=== PATIENT | female | born 1975 | race Caucasian/White ===

== ENCOUNTER 2021-02-20 10:26 | Inpatient (IN) | payer MEDICAID ==
[~2021-02-20] VITALS: Ht 170.2 cm; Wt 73.5 kg
[~2021-02-20 10:26] MED LIST: RISP1TAB48 PO
[2021-02-20 11:10] LABS: COVID AG,FIA SOURCE NASOPHARYNGEAL
[2021-02-20] MEDS ORDERED: HALOPERIDOL LACTATE 5 MG/ML VIAL IM ONE (11:30)
[2021-02-20] MEDS ORDERED: DiphenhydrAMINE HCL 50 MG/ML VIAL IM ONE (11:30)
[2021-02-20] MEDS ORDERED: LORazepam 2 MG/ML VIAL IM ONE (11:30)
[2021-02-20 12:43] LABS: AMPHET/METH SCREEN,URINE POSITIVE (NEGATIVE); BARBITURATE SCREEN, URINE NEGATIVE (NEGATIVE); BENZODIAZEPINES SCREEN,URINE NEGATIVE (NEGATIVE); CANNABINOID SCREEN,URINE NEGATIVE (NEGATIVE); COCAINE SCREEN,URINE NEGATIVE (NEGATIVE); METHADONE SCREEN, URINE NEGATIVE (NEGATIVE); OPIATE SCREEN,URINE NEGATIVE (NEGATIVE); PHENCYCLIDINE SCREEN,URINE NEGATIVE (NEGATIVE)
[2021-02-20 13:01] LABS: BASOPHILS % (AUTO) 1.3 % (0.0-2.0); EOSINOPHILS % (AUTO) 2.5 % (1.0-6.0); HEMATOCRIT 40.3 % (36-46); HEMOGLOBIN 13.2 g/dL (12.0-16.0); LYMPHOCYTES # (AUTO) 1.9 K/uL (1.0-4.8); LYMPHOCYTES % (AUTO) 29.9 % (22.0-44.0); MEAN CORPUSCULAR HEMOGLOBIN 27.1 pg (26.0-34.0); MEAN CORPUSCULAR HGB CONC 32.8 G/dL (31.0-37.0); MEAN CORPUSCULAR VOLUME 83 fL (80-100); MONOCYTES # (AUTO) 0.7 K/uL (0.1-1.0); MONOCYTES % (AUTO) 10.1 % (2.0-9.0); NEUTROPHILS # (AUTO) 3.7 K/uL (1.8-7.7); NEUTROPHILS % (AUTO) 56.2 % (40.0-70.0); PLATELET COUNT (AUTO) 312 K/uL (150-450); RED BLOOD CELL COUNT(AUTO) 4.88 MIL/uL (4.00-5.20); RED CELL DISTRIBUTION WIDTH 14.4 % (11.5-14.5)
[2021-02-20 13:10] LABS: ANION GAP 11 mmol/L (8-16); CALCIUM, TOTAL 9.2 mg/dL (8.8-10.5); CARBON DIOXIDE 27 mmol/L (22-29); CHLORIDE 104 mmol/L (98-107); CREATININE 0.69 mg/dL (0.60-1.30); GLOMERULAR FILTR. RATE CALC > 60 mL/min (>60); GLUCOSE,RANDOM 79 mg/dL (70-110); POTASSIUM 3.7 mmol/L (3.5-5.1); SODIUM SERUM 142 mmol/L (136-145); UREA NITROGEN, BLOOD 25 mg/dL (7-18)
[2021-02-20 13:21] LABS: ALANINE AMINOTRANSFERASE 34 U/L (12-78); ALBUMIN 3.9 g/dL (3.4-5.0); ALKALINE PHOSPHATASE 88 U/L (46-116); ASPARTATE AMINOTRANSFERASE 32 U/L (15-37); BILIRUBIN,TOTAL 0.4 mg/dL (0.1-1.0); HCG,QUANTITATIVE 5 mIU/mL (0-6); TOTAL PROTEIN, SERUM 8.9 g/dL (6.4-8.2)
[2021-02-20] MEDS ORDERED: HALOPERIDOL 5 MG TABLET PO PRN (13:45)
[2021-02-20] MEDS ORDERED: LORazepam 2 MG TABLET PO PRN (13:45)
[2021-02-20] MEDS ORDERED: CEPHALEXIN MONOHYDRATE 500 MG CAPSULE PO ONE ×2 (13:45→17:35)
[2021-02-20] MEDS ORDERED: ZOLPIDEM TARTRATE 10 MG TABLET PO PRN (13:45)
[2021-02-20 13:52] LABS: C-REACTIVE PROTEIN QUANT < 0.05 mg/dL (0.00-0.30)
[2021-02-20 14:05] LABS: D-DIMER 0.48 mg/L FEU (0.00-0.50); PROTHROMBIN TIME 10.8 SEC (9.4-11.6)
[2021-02-20] MEDS ORDERED: BACITRACIN 0.9 GM PACKET OINTMENT TP ONE (14:30)
[2021-02-20] MEDS ORDERED: DOXYCYCLINE HYCLATE 100 MG TABLET PO ONE ×2 (14:30→17:35)
[2021-02-20 14:45] LABS: ERYTHROCYTE SEDIMENTATION RATE 25 MM/HR (0-20)
[2021-02-21 01:43] VITALS: BP 118/73
[2021-02-21] MEDS ORDERED: LOPERAMIDE HCL 2 MG CAPSULE PO PRN (08:00)
[2021-02-21] MEDS ORDERED: MAGNESIUM HYDROXIDE SUSPENSION 30 ML UDCUP PO PRN (08:00)
[2021-02-21] MEDS ORDERED: ONDANSETRON HCL 4 MG TABLET PO PRN (08:00)
[2021-02-21] MEDS ORDERED: DOCUSATE SODIUM 100 MG CAPSULE PO PRN (08:00)
[2021-02-21] MEDS ORDERED: NICOTINE 14 MG/24 HOUR PATCH TD PRN (08:00)
[2021-02-21] MEDS ORDERED: ALBUTEROL SULFATE HFA 90 MCG/PUFF 8 GM INHALER IH PRN (08:00)
[2021-02-21] MEDS ORDERED: CloNIDine HCL 0.1 MG TABLET PO PRN (08:00)
[2021-02-21] MEDS ORDERED: MAG HYDROX/AL HYDROX/SIMETH ES 30 ML SUSPENSION UDCUP PO PRN (08:00)
[2021-02-21] MEDS ORDERED: GuaiFENesin/D-METHORPHAN [SUGAR-FREE] 200-20MG/10 ML SYRUP UDCUP PO PRN (08:00)
[2021-02-21] MEDS ORDERED: PETROLATUM,WHITE 28 GM JELLY TP PRN (08:00)
[2021-02-21] MEDS ORDERED: ACETAMINOPHEN 325 MG TABLET PO PRN (08:00)
[2021-02-21 08:14] VITALS: BP 115/62
[2021-02-21] MEDS: BACITRACIN 28 GM OINTMENT TP SCH ×2 (09:07→17:25)
[2021-02-21 16:30] VITALS: BP 113/72
[2021-02-21] MEDS: RisperiDONE 2 MG TABLET PO SCH ×2 (18:05→20:34)
[2021-02-22] MEDS: BACITRACIN 28 GM OINTMENT TP SCH ×2 (08:21→16:31)
[2021-02-22] MEDS: RisperiDONE 2 MG TABLET PO SCH ×2 (08:47→21:00)
[2021-02-22 16:20] VITALS: BP 103/60
[2021-02-23 00:47] VITALS: BP 100/65
[2021-02-23] MEDS: RisperiDONE 2 MG TABLET PO SCH ×2 (08:15→21:00)
[2021-02-23] MEDS: BACITRACIN 28 GM OINTMENT TP SCH ×2 (08:15→16:14)
[2021-02-23 17:15] VITALS: BP 132/61
[2021-02-24 00:56] VITALS: BP 126/66
[2021-02-24] MEDS: BACITRACIN 28 GM OINTMENT TP SCH ×3 (09:00→16:38)
[2021-02-24] MEDS: RisperiDONE 2 MG TABLET PO SCH ×2 (09:00→20:22)
[2021-02-24 16:11] VITALS: BP 127/69
[2021-02-25 04:45] VITALS: BP 126/62
[2021-02-25] MEDS: BACITRACIN 28 GM OINTMENT TP SCH ×2 (08:33→17:05)
[2021-02-25] MEDS: RisperiDONE 2 MG TABLET PO SCH ×2 (08:33→21:00)
[2021-02-25 08:35] VITALS: BP 101/66
[2021-02-25] MEDS: IBUPROFEN 400 MG TABLET PO PRN (14:14)
[2021-02-25 16:18] VITALS: BP 108/66
[2021-02-26 00:23] VITALS: BP 108/64
[2021-02-26] MEDS: BACITRACIN 28 GM OINTMENT TP SCH ×2 (08:25→16:56)
[2021-02-26] MEDS: RisperiDONE 2 MG TABLET PO SCH ×2 (08:25→20:59)
[2021-02-26] MEDS ORDERED: HALOPERIDOL LACTATE 5 MG/ML VIAL ONE (16:39)
[2021-02-26] MEDS ORDERED: DiphenhydrAMINE HCL 50 MG/ML VIAL IM ONE (16:40)
[2021-02-26] MEDS ORDERED: HALOPERIDOL LACTATE 5 MG/ML VIAL IM ONE (16:40)
[2021-02-26] MEDS ORDERED: LORazepam 2 MG/ML VIAL IM ONE (16:40)
[2021-02-27 00:45] VITALS: BP 102/69
[2021-02-27 08:29] VITALS: BP 124/79
[2021-02-27] MEDS: RisperiDONE 2 MG TABLET PO SCH ×2 (08:30→21:00)
[2021-02-27] MEDS: BACITRACIN 28 GM OINTMENT TP SCH ×2 (08:30→16:06)
[2021-02-27] MEDS: IBUPROFEN 400 MG TABLET PO PRN (16:06)
[2021-02-27 16:21] VITALS: BP 105/64
[2021-02-28 02:05] VITALS: BP 102/71
[2021-02-28] MEDS: IBUPROFEN 400 MG TABLET PO PRN ×2 (05:12→21:07)
[2021-02-28 08:12] VITALS: BP 112/66
[2021-02-28] MEDS: RisperiDONE 2 MG TABLET PO SCH ×2 (08:24→21:00)
[2021-02-28] MEDS: BACITRACIN 28 GM OINTMENT TP SCH ×2 (08:24→17:00)
[2021-02-28 17:28] VITALS: BP 120/68
[2021-02-28 21:07] VITALS: BP 101/59
[2021-03-01 02:40] VITALS: BP 117/66
[2021-03-01] MEDS: RisperiDONE 2 MG TABLET PO SCH (08:13)
[2021-03-01] MEDS: BACITRACIN 28 GM OINTMENT TP SCH (08:13)
[2021-03-01 08:15] VITALS: BP 102/62
[2021-03-01] MEDS ORDERED: RISP2TAB45 PO (08:45)
[2021-03-01] MEDS: IBUPROFEN 400 MG TABLET PO PRN (10:17)
== END 2021-03-01 13:00 | disposition home or self-care (01) | DRG 750 ==
LOC: EMS 10:32 → B3A 13:33
DX: F20.0 Paranoid schizophrenia (principal); L03.116 Cellulitis of left lower limb; E11.9 Type 2 diabetes mellitus without complications; I10 Essential (primary) hypertension; F15.10 Other stimulant abuse, uncomplicated; R10.13 Epigastric pain; F31.9 Bipolar disorder, unspecified; Z91.19 Patient's noncompliance with other medical treatment and regimen; Z79.899 Other long term (current) drug therapy
CPT/HCPCS: 80053; 83036; 84702; 84703; 85025; 85379; 85610; 85651; 86140; 87040; 87426; 99291; G0480; J1200; J1630; J2060

== ENCOUNTER 2021-02-28 12:08 | Emergency (ER) | payer MEDICAID ==
[~2021-02-28] VITALS: Ht 170.2 cm; Wt 78.0 kg
[2021-02-28 13:59] VITALS: BP 122/84
[2021-02-28] MEDS ORDERED: ACETAMINOPHEN 500 MG TABLET PO ONE (14:30)
[2021-03-01] MEDS ORDERED: RISP2TAB45 PO (08:45)
== END 2021-02-28 16:46 | disposition home or self-care (01) ==
LOC: EMS 12:08
DX: S93.402A Sprain of unspecified ligament of left ankle, initial encounter (principal); I11.9 Hypertensive heart disease without heart failure; E11.9 Type 2 diabetes mellitus without complications; F15.90 Other stimulant use, unspecified, uncomplicated; W01.0XXA Fall on same level from slipping, tripping and stumbling without subsequent striking against object, initial encounter; Y93.89 Activity, other specified; Y92.89 Other specified places as the place of occurrence of the external cause; Y99.8 Other external cause status
CPT/HCPCS: 99284

== ENCOUNTER 2021-04-18 23:14 | Emergency (ER) | payer MEDICAID ==
[~2021-04-18] VITALS: Ht 180.3 cm; Wt 100.0 kg
[~2021-04-18 23:14] MED LIST changes: -RISP1TAB48 PO; +RISP2TAB45 PO
[2021-04-18] MEDS ORDERED: KETOROLAC TROMETHAMINE 30 MG/ML VIAL IM ONE (23:45)
[2021-04-19 01:32] VITALS: BP 99/71
== END 2021-04-19 02:58 | disposition home or self-care (01) ==
LOC: EMS 23:15
DX: S93.402A Sprain of unspecified ligament of left ankle, initial encounter (principal); I10 Essential (primary) hypertension; E11.9 Type 2 diabetes mellitus without complications; F15.90 Other stimulant use, unspecified, uncomplicated; X50.1XXA Overexertion from prolonged static or awkward postures, initial encounter; Y93.89 Activity, other specified; Y92.89 Other specified places as the place of occurrence of the external cause; Y99.8 Other external cause status
CPT/HCPCS: 73610; 73630; 82962; 96372; 99284; J1885; 29540; 99283

== ENCOUNTER 2022-10-15 11:43 | Inpatient (IN) | payer MEDICAID ==
[~2022-10-15] VITALS: Ht 165.1 cm; Wt 70.8 kg
[2022-10-15] MEDS ORDERED: HALOPERIDOL LACTATE 5 MG/ML VIAL IM ONE (12:45)
[2022-10-15] MEDS ORDERED: LORazepam 2 MG/ML VIAL IM ONE (12:45)
[2022-10-15] MEDS ORDERED: DiphenhydrAMINE HCL 50 MG/ML VIAL IM ONE (12:45)
[2022-10-15 13:51] LABS: BASOPHILS % (AUTO) 0.5 % (0.0-2.0); EOSINOPHILS % (AUTO) 1.7 % (1.0-6.0); HEMATOCRIT 30.5 % (36-46); HEMOGLOBIN 9.3 g/dL (12.0-16.0); LYMPHOCYTES # (AUTO) 1.3 K/uL (1.0-4.8); LYMPHOCYTES % (AUTO) 21.6 % (22.0-44.0); MEAN CORPUSCULAR HEMOGLOBIN 21.9 pg (26.0-34.0); MEAN CORPUSCULAR HGB CONC 30.6 G/dL (31.0-37.0); MEAN CORPUSCULAR VOLUME 72 fL (80-100); MONOCYTES # (AUTO) 0.7 K/uL (0.1-1.0); MONOCYTES % (AUTO) 12.1 % (2.0-9.0); NEUTROPHILS # (AUTO) 3.9 K/uL (1.8-7.7); NEUTROPHILS % (AUTO) 64.1 % (40.0-70.0); PLATELET COUNT (AUTO) 290 K/uL (150-450); RED BLOOD CELL COUNT(AUTO) 4.25 MIL/uL (4.00-5.20); RED CELL DISTRIBUTION WIDTH 19.5 % (11.5-14.5)
[2022-10-15 14:05] LABS: COVID AG,FIA SOURCE NASOPHARYNGEAL
[2022-10-15 14:05] LABS: ANION GAP 5 mmol/L (8-16); CALCIUM, TOTAL 9.2 mg/dL (8.8-10.5); CARBON DIOXIDE 29 mmol/L (22-29); CHLORIDE 102 mmol/L (98-107); CREATININE 0.62 mg/dL (0.60-1.30); GLUCOSE,RANDOM 77 mg/dL (70-110); POTASSIUM 3.6 mmol/L (3.5-5.1); SODIUM SERUM 136 mmol/L (136-145); UREA NITROGEN, BLOOD 22 mg/dL (7-18)
[2022-10-15 14:07] LABS: GLOMERULAR FILTR. RATE CALC > 60 mL/min (>60)
[2022-10-15] MEDS ORDERED: LORazepam 2 MG TABLET PO PRN (14:15)
[2022-10-15] MEDS ORDERED: HALOPERIDOL 5 MG TABLET PO PRN (14:15)
[2022-10-15] MEDS ORDERED: ZOLPIDEM TARTRATE 10 MG TABLET PO PRN (14:15)
[2022-10-15 14:20] LABS: ALANINE AMINOTRANSFERASE 32 U/L (12-78); ALBUMIN 3.6 g/dL (3.4-5.0); ALKALINE PHOSPHATASE 97 U/L (46-116); ASPARTATE AMINOTRANSFERASE 25 U/L (15-37); BILIRUBIN,TOTAL 0.4 mg/dL (0.1-1.0); HCG,QUANTITATIVE 6 mIU/mL (0-6); THYROID STIMULATING HORMONE 4.51 uIU/mL (0.36-3.74); TOTAL PROTEIN, SERUM 7.8 g/dL (6.4-8.2)
[2022-10-15 17:21] VITALS: BP 96/63
[2022-10-16] MEDS ORDERED: ALBUTEROL SULFATE HFA 90 MCG/PUFF 8 GM INHALER IH PRN (06:45)
[2022-10-16] MEDS ORDERED: GuaiFENesin/D-METHORPHAN [SUGAR-FREE] 200-20MG/10 ML SYRUP UDCUP PO PRN (06:45)
[2022-10-16] MEDS ORDERED: CloNIDine HCL 0.1 MG TABLET PO PRN (06:45)
[2022-10-16] MEDS ORDERED: NICOTINE 14 MG/24 HOUR PATCH TD PRN (06:45)
[2022-10-16] MEDS ORDERED: IBUPROFEN 400 MG TABLET PO PRN (06:45)
[2022-10-16] MEDS ORDERED: ACETAMINOPHEN 325 MG TABLET PO PRN (06:45)
[2022-10-16] MEDS ORDERED: ONDANSETRON HCL 4 MG TABLET PO PRN (06:45)
[2022-10-16] MEDS ORDERED: PETROLATUM,WHITE 28 GM JELLY TP PRN (06:45)
[2022-10-16] MEDS ORDERED: LOPERAMIDE HCL 2 MG CAPSULE PO PRN (06:45)
[2022-10-16] MEDS ORDERED: DOCUSATE SODIUM 100 MG CAPSULE PO PRN (06:45)
[2022-10-16] MEDS: RisperiDONE 2 MG TABLET PO SCH ×3 (09:30→20:31)
[2022-10-16 16:00] VITALS: BP 104/62
[2022-10-17 08:27] VITALS: BP 103/55
[2022-10-17] MEDS: RisperiDONE 2 MG TABLET PO SCH ×3 (08:58→20:40)
[2022-10-17 16:14] VITALS: BP 103/54
[2022-10-18] MEDS: RisperiDONE 2 MG TABLET PO SCH ×2 (08:08→20:16)
[2022-10-18 16:00] VITALS: BP 118/59
[2022-10-19] MEDS: RisperiDONE 2 MG TABLET PO SCH ×2 (09:00→20:08)
[2022-10-19 13:59] VITALS: BP 115/63
[2022-10-19 16:05] VITALS: BP 102/60
[2022-10-20 08:17] VITALS: BP 93/55
[2022-10-20] MEDS: RisperiDONE 2 MG TABLET PO SCH ×2 (09:00→20:32)
[2022-10-20 16:01] VITALS: BP 99/63
[2022-10-21 06:37] LABS: COVID AG,FIA SOURCE NASAL SWAB
[2022-10-21] MEDS: RisperiDONE 2 MG TABLET PO SCH (09:00)
== END 2022-10-21 14:30 | disposition home or self-care (01) | DRG 750 ==
LOC: EMS 11:44 → 3EC 16:13
PROVIDERS: ADMIT Psychiatry & Neurology Child & Adolescent Psychiatry; ATTEND Psychiatry & Neurology Child & Adolescent Psychiatry
DX: F20.9 Schizophrenia, unspecified (principal); I42.9 Cardiomyopathy, unspecified; E11.9 Type 2 diabetes mellitus without complications; Z20.822 Contact with and (suspected) exposure to COVID-19; F43.10 Post-traumatic stress disorder, unspecified; I10 Essential (primary) hypertension; Z78.1 Physical restraint status; Z91.14 Patient's other noncompliance with medication regimen
CPT/HCPCS: 71100; 73521; 80053; 80061; 83036; 84443; 84702; 85025; 99291; G0480; J1200; J1630; J2060

== ENCOUNTER 2022-11-04 14:15 | Inpatient (IN) | payer MEDICAID ==
[~2022-11-04] VITALS: Ht 162.6 cm; Wt 78.5 kg
[2022-11-04] MEDS ORDERED: DiphenhydrAMINE HCL 50 MG/ML VIAL IM ONE (15:00)
[2022-11-04] MEDS ORDERED: LORazepam 2 MG/ML VIAL IM ONE (15:00)
[2022-11-04] MEDS ORDERED: HALOPERIDOL LACTATE 5 MG/ML VIAL IM ONE (15:00)
[2022-11-04 15:37] LABS: HEMOGLOBIN 8.8 g/dL (12.0-16.0); LYMPHOCYTES # (AUTO) 1.2 K/uL (1.0-4.8); NEUTROPHILS % (AUTO) 62.2 % (40.0-70.0)
[2022-11-04 15:41] LABS: BASOPHILS % (AUTO) 1.5 % (0.0-2.0); EOSINOPHILS % (AUTO) 3.3 % (1.0-6.0); HEMATOCRIT 28.5 % (36-46); LYMPHOCYTES % (AUTO) 23.7 % (22.0-44.0); MEAN CORPUSCULAR HEMOGLOBIN 22.2 pg (26.0-34.0); MEAN CORPUSCULAR HGB CONC 30.7 G/dL (31.0-37.0); MEAN CORPUSCULAR VOLUME 72 fL (80-100); MONOCYTES # (AUTO) 0.5 K/uL (0.1-1.0); MONOCYTES % (AUTO) 9.3 % (2.0-9.0); NEUTROPHILS # (AUTO) 3.1 K/uL (1.8-7.7); PLATELET COUNT (AUTO) 363 K/uL (150-450); RED BLOOD CELL COUNT(AUTO) 3.94 MIL/uL (4.00-5.20); RED CELL DISTRIBUTION WIDTH 18.1 % (11.5-14.5)
[2022-11-04 15:51] LABS: ANION GAP 9 mmol/L (8-16); CALCIUM, TOTAL 9.4 mg/dL (8.8-10.5); CARBON DIOXIDE 26 mmol/L (22-29); CHLORIDE 108 mmol/L (98-107); CREATININE 0.74 mg/dL (0.60-1.30); GLOMERULAR FILTR. RATE CALC > 60 mL/min (>60); GLUCOSE,RANDOM 88 mg/dL (70-110); POTASSIUM 3.1 mmol/L (3.5-5.1); SODIUM SERUM 143 mmol/L (136-145); UREA NITROGEN, BLOOD 29 mg/dL (7-18)
[2022-11-04 15:57] LABS: ALANINE AMINOTRANSFERASE 21 U/L (12-78); ALBUMIN 3.7 g/dL (3.4-5.0); ALKALINE PHOSPHATASE 87 U/L (46-116); ASPARTATE AMINOTRANSFERASE 26 U/L (15-37); BILIRUBIN,TOTAL 0.5 mg/dL (0.1-1.0); TOTAL PROTEIN, SERUM 8.1 g/dL (6.4-8.2)
[2022-11-04] MEDS ORDERED: LORazepam 2 MG TABLET PO PRN (16:15)
[2022-11-04] MEDS ORDERED: ZOLPIDEM TARTRATE 10 MG TABLET PO PRN (16:15)
[2022-11-04] MEDS ORDERED: HALOPERIDOL 5 MG TABLET PO PRN (16:15)
[2022-11-04 17:02] LABS: COVID AG,FIA SOURCE NASAL SWAB
[2022-11-04 21:46] VITALS: BP 131/78
[2022-11-05] MEDS ORDERED: BENZOCAINE/MENTHOL LOZENGE PO PRN (05:45)
[2022-11-05] MEDS ORDERED: ONDANSETRON HCL 4 MG TABLET PO PRN (05:45)
[2022-11-05] MEDS ORDERED: ACETAMINOPHEN 325 MG TABLET PO PRN (05:45)
[2022-11-05] MEDS ORDERED: BACITRACIN 28 GM OINTMENT TP PRN (05:45)
[2022-11-05] MEDS ORDERED: CloNIDine HCL 0.1 MG TABLET PO PRN (05:45)
[2022-11-05] MEDS ORDERED: OMEPRAZOLE 20 MG CAPSULE PO PRN (05:45)
[2022-11-05] MEDS ORDERED: POTASSIUM CHLORIDE 20 MEQ ER TABLET PO ONE (05:45)
[2022-11-05] MEDS ORDERED: ALBUTEROL SULFATE HFA 90 MCG/PUFF 8 GM INHALER IH PRN (05:45)
[2022-11-05] MEDS ORDERED: MAG HYDROX/AL HYDROX/SIMETH ES 30 ML SUSPENSION UDCUP PO PRN (05:45)
[2022-11-05] MEDS ORDERED: PETROLATUM,WHITE 28 GM JELLY TP PRN (05:45)
[2022-11-05] MEDS ORDERED: LOPERAMIDE HCL 2 MG CAPSULE PO PRN (05:45)
[2022-11-05] MEDS: FERROUS SULFATE 325 MG EC TABLET PO SCH ×2 (06:57→17:45)
[2022-11-05] MEDS: RisperiDONE 2 MG TABLET PO SCH ×2 (12:37→20:33)
[2022-11-06] MEDS: LEVOTHYROXINE SODIUM 25 MCG TABLET PO SCH (06:18)
[2022-11-06] MEDS: FERROUS SULFATE 325 MG EC TABLET PO SCH ×2 (06:37→17:30)
[2022-11-06] MEDS: RisperiDONE 2 MG TABLET PO SCH ×2 (09:00→20:57)
[2022-11-07] MEDS: LEVOTHYROXINE SODIUM 25 MCG TABLET PO SCH (07:00)
[2022-11-07] MEDS: FERROUS SULFATE 325 MG EC TABLET PO SCH ×2 (07:01→16:48)
[2022-11-07] MEDS: RisperiDONE 2 MG TABLET PO SCH ×2 (09:00→20:37)
[2022-11-08] MEDS: LEVOTHYROXINE SODIUM 25 MCG TABLET PO SCH (06:00)
[2022-11-08] MEDS: FERROUS SULFATE 325 MG EC TABLET PO SCH ×2 (06:39→16:37)
[2022-11-08] MEDS: RisperiDONE 2 MG TABLET PO SCH ×2 (08:28→20:12)
[2022-11-08 16:11] VITALS: BP 113/68
[2022-11-09] MEDS: LEVOTHYROXINE SODIUM 25 MCG TABLET PO SCH (06:28)
[2022-11-09] MEDS: FERROUS SULFATE 325 MG EC TABLET PO SCH ×2 (06:41→16:05)
[2022-11-09 08:08] VITALS: BP 114/76
[2022-11-09] MEDS: RisperiDONE 2 MG TABLET PO SCH ×2 (08:36→20:31)
[2022-11-09 16:01] VITALS: BP 117/62
[2022-11-09] MEDS: IBUPROFEN 600 MG TABLET PO PRN (16:06)
[2022-11-10] MEDS: LEVOTHYROXINE SODIUM 25 MCG TABLET PO SCH (06:37)
[2022-11-10] MEDS: FERROUS SULFATE 325 MG EC TABLET PO SCH ×2 (06:37→16:14)
[2022-11-10] MEDS: RisperiDONE 2 MG TABLET PO SCH ×2 (07:55→20:51)
[2022-11-10 08:03] VITALS: BP 125/91
[2022-11-10 13:38] VITALS: BP 119/87
[2022-11-10] MEDS: IBUPROFEN 600 MG TABLET PO PRN ×2 (13:38→22:20)
[2022-11-10] MEDS: MAGNESIUM HYDROXIDE SUSPENSION 30 ML UDCUP PO PRN (13:39)
[2022-11-10] MEDS: DOCUSATE SODIUM 100 MG CAPSULE PO PRN (13:39)
[2022-11-10 14:38] VITALS: BP 121/87
[2022-11-10 15:00] LABS: COVID AG,FIA SOURCE NASAL SWAB
[2022-11-10 16:03] VITALS: BP 115/63
[2022-11-10 22:18] VITALS: BP 117/67
[2022-11-11 06:01] LABS: APPEARANCE,URINE CLEAR (CLEAR); BILIRUBIN,URINE NEGATIVE (NEGATIVE); GLUCOSE, URINE (UA) NEGATIVE (NEGATIVE); KETONES,URINE NEGATIVE (NEGATIVE); LEUKOCYTE ESTERASE ,URINE NEGATIVE (NEGATIVE); NITRATE,URINE NEGATIVE (NEGATIVE); OCCULT BLOOD,URINE NEGATIVE (NEGATIVE); PH,URINE 6.5 (5.0-8.0); PROTEIN,URINE NEGATIVE (NEGATIVE); SPECIFIC GRAVITIY, URINE 1.015 (1.003-1.030); UROBILINOGEN,URINE <=1.0 mg/dL (<=1.0)
[2022-11-11 06:09] LABS: AMPHET/METH SCREEN,URINE NEGATIVE (NEGATIVE); BARBITURATE SCREEN, URINE NEGATIVE (NEGATIVE); BENZODIAZEPINES SCREEN,URINE NEGATIVE (NEGATIVE); CANNABINOID SCREEN,URINE NEGATIVE (NEGATIVE); COCAINE SCREEN,URINE NEGATIVE (NEGATIVE); METHADONE SCREEN, URINE NEGATIVE (NEGATIVE); OPIATE SCREEN,URINE NEGATIVE (NEGATIVE)
[2022-11-11 06:11] LABS: PHENCYCLIDINE SCREEN,URINE NEGATIVE (NEGATIVE)
[2022-11-11] MEDS: LEVOTHYROXINE SODIUM 25 MCG TABLET PO SCH (06:16)
[2022-11-11] MEDS: FERROUS SULFATE 325 MG EC TABLET PO SCH ×2 (06:31→17:30)
[2022-11-11 08:06] VITALS: BP 102/67
[2022-11-11] MEDS: RisperiDONE 2 MG TABLET PO SCH (08:15)
[2022-11-11 15:30] VITALS: BP 111/65
[2022-11-11] MEDS: IBUPROFEN 600 MG TABLET PO PRN (15:30)
[2022-11-11 16:05] VITALS: BP 111/65
[2022-11-11] MEDS: OLANZapine 10 MG TABLET PO SCH (20:02)
[2022-11-12] MEDS: LEVOTHYROXINE SODIUM 25 MCG TABLET PO SCH ×2 (06:26→17:46)
[2022-11-12] MEDS: FERROUS SULFATE 325 MG EC TABLET PO SCH ×2 (06:31→17:46)
[2022-11-12 08:19] VITALS: BP 125/74
[2022-11-12] MEDS: IBUPROFEN 600 MG TABLET PO PRN (12:39)
[2022-11-12 12:40] VITALS: BP 122/76
[2022-11-12 13:40] VITALS: BP 111/68
[2022-11-12 16:00] VITALS: BP 113/66
[2022-11-12] MEDS: MAGNESIUM HYDROXIDE SUSPENSION 30 ML UDCUP PO PRN (17:47)
[2022-11-12] MEDS: DOCUSATE SODIUM 100 MG CAPSULE PO PRN (17:47)
[2022-11-12] MEDS: OLANZapine 10 MG TABLET PO SCH (20:24)
[2022-11-13] MEDS: FERROUS SULFATE 325 MG EC TABLET PO SCH ×2 (06:48→16:41)
[2022-11-13 08:34] VITALS: BP 113/60
[2022-11-13 16:36] VITALS: BP 107/67
[2022-11-13 16:55] VITALS: BP 112/69
[2022-11-13] MEDS: IBUPROFEN 600 MG TABLET PO PRN (16:55)
[2022-11-13] MEDS: OLANZapine 10 MG TABLET PO SCH (20:19)
[2022-11-14] MEDS: LEVOTHYROXINE SODIUM 25 MCG TABLET PO SCH (06:45)
[2022-11-14] MEDS: FERROUS SULFATE 325 MG EC TABLET PO SCH ×2 (06:47→17:50)
[2022-11-14 09:02] VITALS: BP 108/74
[2022-11-14] MEDS: IBUPROFEN 600 MG TABLET PO PRN (14:21)
[2022-11-14 16:24] VITALS: BP 102/61
[2022-11-14] MEDS: OLANZapine 10 MG TABLET PO SCH (21:06)
[2022-11-15] MEDS: LEVOTHYROXINE SODIUM 25 MCG TABLET PO SCH (06:40)
[2022-11-15] MEDS: FERROUS SULFATE 325 MG EC TABLET PO SCH ×2 (06:41→16:53)
[2022-11-15 08:08] VITALS: BP 103/70
[2022-11-15 16:00] VITALS: BP 109/61
[2022-11-15] MEDS: IBUPROFEN 600 MG TABLET PO PRN (16:16)
[2022-11-15 17:16] VITALS: BP 112/68
[2022-11-15] MEDS: OLANZapine 10 MG TABLET PO SCH (20:15)
[2022-11-16] MEDS: FERROUS SULFATE 325 MG EC TABLET PO SCH ×2 (06:34→16:55)
[2022-11-16] MEDS: LEVOTHYROXINE SODIUM 25 MCG TABLET PO SCH (06:34)
[2022-11-16 15:11] VITALS: BP 118/74
[2022-11-16] MEDS: IBUPROFEN 600 MG TABLET PO PRN (15:11)
[2022-11-16 16:11] VITALS: BP 106/72
[2022-11-16 16:30] VITALS: BP 121/69
[2022-11-16] MEDS: OLANZapine 10 MG TABLET PO SCH (20:50)
[2022-11-17] MEDS: LEVOTHYROXINE SODIUM 25 MCG TABLET PO SCH (06:47)
[2022-11-17] MEDS: FERROUS SULFATE 325 MG EC TABLET PO SCH ×2 (06:47→16:52)
[2022-11-17 08:00] VITALS: BP 119/69
[2022-11-17 16:00] VITALS: BP 118/69
[2022-11-17 16:52] VITALS: BP 122/78
[2022-11-17] MEDS: IBUPROFEN 600 MG TABLET PO PRN (16:52)
[2022-11-17 17:52] VITALS: BP 116/76
[2022-11-17] MEDS: OLANZapine 10 MG TABLET PO SCH (20:55)
[2022-11-18] MEDS: LEVOTHYROXINE SODIUM 25 MCG TABLET PO SCH (07:00)
[2022-11-18] MEDS: FERROUS SULFATE 325 MG EC TABLET PO SCH ×2 (07:04→16:06)
[2022-11-18 08:00] VITALS: BP 121/75
[2022-11-18 16:12] VITALS: BP 122/64
[2022-11-18] MEDS: IBUPROFEN 600 MG TABLET PO PRN (16:12)
[2022-11-18 17:12] VITALS: BP 118/72
[2022-11-18] MEDS: OLANZapine 10 MG TABLET PO SCH (20:16)
[2022-11-19] MEDS: LEVOTHYROXINE SODIUM 25 MCG TABLET PO SCH (06:24)
[2022-11-19] MEDS: FERROUS SULFATE 325 MG EC TABLET PO SCH ×2 (06:25→16:27)
[2022-11-19 09:21] VITALS: BP 104/57
[2022-11-19 14:47] VITALS: BP 107/56
[2022-11-19] MEDS: IBUPROFEN 600 MG TABLET PO PRN (14:47)
[2022-11-19] MEDS: OLANZapine 10 MG TABLET PO SCH (20:33)
[2022-11-19 23:55] LABS: COVID AG,FIA SOURCE NASAL SWAB
[2022-11-20] MEDS: FERROUS SULFATE 325 MG EC TABLET PO SCH ×2 (06:57→16:01)
[2022-11-20] MEDS: LEVOTHYROXINE SODIUM 25 MCG TABLET PO SCH (06:57)
[2022-11-20 08:01] VITALS: BP 121/79
[2022-11-20] MEDS: IBUPROFEN 600 MG TABLET PO PRN (16:01)
[2022-11-20 16:12] VITALS: BP 121/60
[2022-11-20] MEDS: OLANZapine 10 MG TABLET PO SCH (20:45)
[2022-11-21] MEDS: LEVOTHYROXINE SODIUM 25 MCG TABLET PO SCH (06:56)
[2022-11-21] MEDS: FERROUS SULFATE 325 MG EC TABLET PO SCH (06:57)
[2022-11-21 08:42] VITALS: BP 132/72
[2022-11-21] MEDS ORDERED: OLAN10 PO (14:26)
== END 2022-11-21 15:30 | disposition home or self-care (01) | DRG 750 ==
LOC: EMS 14:23 → 3EC 17:30 → 3EI 11-14 14:41
PROVIDERS: ADMIT Psychiatry & Neurology Child & Adolescent Psychiatry; ATTEND Psychiatry & Neurology Child & Adolescent Psychiatry
DX: F25.9 Schizoaffective disorder, unspecified (principal); I11.9 Hypertensive heart disease without heart failure; E11.9 Type 2 diabetes mellitus without complications; F15.10 Other stimulant abuse, uncomplicated; E03.9 Hypothyroidism, unspecified; E87.6 Hypokalemia; F32.A Depression, unspecified; F43.10 Post-traumatic stress disorder, unspecified; G47.00 Insomnia, unspecified; K59.00 Constipation, unspecified; Z20.822 Contact with and (suspected) exposure to COVID-19; Z59.00 Homelessness unspecified; Z78.1 Physical restraint status; Z91.199 Patient's noncompliance with other medical treatment and regimen due to unspecified reason; Z91.410 Personal history of adult physical and sexual abuse; Z79.899 Other long term (current) drug therapy; Z90.49 Acquired absence of other specified parts of digestive tract
CPT/HCPCS: 80053; 80307; 81003; 85025; 99291; G0480; J1200; J1630; J2060

== ENCOUNTER 2024-05-12 12:49 | Inpatient (IN) | payer MEDICAID, OTHER ==
[~2024-05-12] VITALS: Ht 162.6 cm; Wt 68.0 kg
[~2024-05-12 12:49] MED LIST changes: +OLAN10 PO
[2024-05-12] MEDS: DiphenhydrAMINE HCL 50 MG/ML VIAL IM ONE (13:34)
[2024-05-12] MEDS: LORazepam 2 MG/ML VIAL IM ONE (13:34)
[2024-05-12] MEDS: HALOPERIDOL LACTATE 5 MG/ML VIAL IM ONE (13:34)
[2024-05-12 13:39] LABS: COVID AG,FIA SOURCE NASAL SWAB
[2024-05-12 14:07] LABS: SARS-COV2 (COVID) ANTIGEN,FIA Negative (Negative)
[2024-05-12 16:55] LABS: BASOPHILS % (AUTO) 0.6 % (0.0-2.0); EOSINOPHILS % (AUTO) 2.6 % (1.0-6.0); HEMATOCRIT 38.5 % (36-46); HEMOGLOBIN 12.8 g/dL (12.0-16.0); LYMPHOCYTES # (AUTO) 1.9 K/uL (1.0-4.8); LYMPHOCYTES % (AUTO) 24.7 % (22.0-44.0); MEAN CORPUSCULAR HEMOGLOBIN 30.2 pg (26.0-34.0); MEAN CORPUSCULAR HGB CONC 33.3 G/dL (31.0-37.0); MEAN CORPUSCULAR VOLUME 91 fL (80-100); MONOCYTES # (AUTO) 0.9 K/uL (0.1-1.0); MONOCYTES % (AUTO) 11.2 % (2.0-9.0); NEUTROPHILS # (AUTO) 4.8 K/uL (1.8-7.7); NEUTROPHILS % (AUTO) 60.9 % (40.0-70.0); PLATELET COUNT (AUTO) 260 K/uL (150-450); RED BLOOD CELL COUNT(AUTO) 4.24 MIL/uL (4.00-5.20); RED CELL DISTRIBUTION WIDTH 13.6 % (11.5-14.5); WHITE BLOOD COUNT (AUTO) 7.8 K/uL (4.5-11.0)
[2024-05-12 17:05] LABS: ANION GAP 13 mmol/L (8-16); CALCIUM, TOTAL 8.6 mg/dL (8.8-10.5); CARBON DIOXIDE 26 mmol/L (22-29); CHLORIDE 107 mmol/L (98-107); CREATININE 0.72 mg/dL (0.60-1.30); GLOMERULAR FILTR. RATE CALC > 60 mL/min (>60); GLUCOSE,RANDOM 76 mg/dL (70-110); SODIUM SERUM 146 mmol/L (136-145); UREA NITROGEN, BLOOD 21 mg/dL (7-18)
[2024-05-12 17:10] LABS: ALCOHOL, BLOOD (SERUM) < 3 mg/dL (0-10)
[2024-05-12] MEDS: POTASSIUM CHLORIDE 20 MEQ ER TABLET PO ONE (23:40)
[2024-05-13] MEDS ORDERED: LORazepam 2 MG TABLET PO PRN (01:15)
[2024-05-13 02:01] LABS: GLUCOMETER DEV NAME(LOC) BV3S.; GLUCOSE,POINT OF CARE 69 MG/DL (70-110)
[2024-05-13 02:42] VITALS: BP 128/61; PULSE 73; RESP 18; TEMP 97.4
[2024-05-13 03:26] LABS: GLUCOMETER DEV NAME(LOC) BV3S.; GLUCOSE,POINT OF CARE 80 MG/DL (70-110)
[2024-05-13] MEDS: ZOLPIDEM TARTRATE 10 MG TABLET PO PRN (05:26)
[2024-05-13] MEDS: HALOPERIDOL 5 MG TABLET PO PRN (06:14)
[2024-05-13 06:46] VITALS: BP 128/61; PULSE 73; RESP 18; TEMP 97.6
[2024-05-13 06:50] VITALS: BP 128/61; PULSE 73; RESP 18; TEMP 97.4; O2SAT 96
[2024-05-13 08:41] VITALS: BP 118/65; PULSE 71; RESP 17; TEMP 97.3; O2SAT 100
[2024-05-13] MEDS: POTASSIUM CHLORIDE 20 MEQ ER TABLET PO ONE (10:27)
[2024-05-13] MEDS: RisperiDONE 2 MG TABLET PO SCH (10:27)
[2024-05-13 10:46] LABS: GLUCOMETER DEV NAME(LOC) BV3S.; GLUCOSE,POINT OF CARE 83 MG/DL (70-110)
[2024-05-13 20:00] VITALS: BP 124/68; PULSE 75; RESP 18; TEMP 97; O2SAT 99
[2024-05-13] MEDS ORDERED: ALBUTEROL SULFATE HFA 90 MCG/PUFF 8 GM INHALER IH PRN (20:45)
[2024-05-13] MEDS ORDERED: BENZOCAINE/MENTHOL LOZENGE PO PRN (20:45)
[2024-05-13] MEDS ORDERED: LOPERAMIDE HCL 2 MG CAPSULE PO PRN (20:45)
[2024-05-13] MEDS ORDERED: PETROLATUM,WHITE 28 GM JELLY TP PRN (20:45)
[2024-05-13] MEDS ORDERED: OMEPRAZOLE 20 MG CAPSULE PO PRN (20:45)
[2024-05-13] MEDS ORDERED: CloNIDine HCL 0.1 MG TABLET PO PRN (20:45)
[2024-05-13] MEDS ORDERED: MAGNESIUM HYDROXIDE SUSPENSION 30 ML UDCUP PO PRN (20:45)
[2024-05-13] MEDS ORDERED: DOCUSATE SODIUM 100 MG CAPSULE PO PRN (20:45)
[2024-05-13] MEDS ORDERED: BACITRACIN 28 GM OINTMENT TP PRN (20:45)
[2024-05-13] MEDS ORDERED: MAG HYDROX/ALUMINUM HYD/SIMETH ES 30 ML SUSPENSION UDCUP PO PRN (20:45)
[2024-05-13] MEDS ORDERED: ONDANSETRON HCL 4 MG TABLET PO PRN (20:45)
[2024-05-13] MEDS: OLANZapine 10 MG TABLET PO SCH (20:58)
[2024-05-14 08:17] VITALS: BP 130/69; PULSE 68; RESP 17; TEMP 97.9; O2SAT 97
[2024-05-14 08:30] LABS: ANION GAP 8 mmol/L (8-16); CALCIUM, TOTAL 8.2 mg/dL (8.8-10.5); CARBON DIOXIDE 26 mmol/L (22-29); CHLORIDE 105 mmol/L (98-107); CREATININE 0.77 mg/dL (0.60-1.30); GLOMERULAR FILTR. RATE CALC > 60 mL/min (>60); GLUCOSE,RANDOM 92 mg/dL (70-110); POTASSIUM 3.8 mmol/L (3.5-5.1); SODIUM SERUM 139 mmol/L (136-145); UREA NITROGEN, BLOOD 15 mg/dL (7-18)
[2024-05-14 08:40] LABS: HEMOGLOBIN A1C 4.9 % (3.8-5.6)
[2024-05-14] MEDS: -PHARMACY VACCINE NOTE- MISC ONE (13:43)
[2024-05-14 20:43] VITALS: RESP 18
[2024-05-15 14:15] VITALS: BP 111/63; RESP 19; O2SAT 100
[2024-05-15] MEDS: LITHIUM CARBONATE 300 MG CAPSULE PO SCH (16:11)
[2024-05-15] MEDS: DIVALPROEX SODIUM 500 MG DR TABLET PO SCH (16:11)
[2024-05-15 21:22] VITALS: RESP 20
[2024-05-15] MEDS: IBUPROFEN 600 MG TABLET PO PRN (21:22)
[2024-05-15 22:22] VITALS: RESP 16
[2024-05-16 08:16] VITALS: RESP 18
[2024-05-16] MEDS: ACETAMINOPHEN 325 MG TABLET PO PRN (09:02)
[2024-05-16] MEDS: LORATADINE 10 MG TABLET PO SCH (20:11)
[2024-05-16 20:23] VITALS: BP 119/71; PULSE 71; RESP 17; TEMP 97.5; O2SAT 99
[2024-05-17] MEDS ORDERED: LITH300C3 PO (15:02)
[2024-05-17] MEDS ORDERED: DIVA-112 PO (15:02)
[2024-05-17] MEDS ORDERED: LORA10TA7 PO (15:03)
== END 2024-05-17 16:27 | disposition home or self-care (01) | DRG 750 ==
LOC: EMS 12:49 → B3A 05-13 01:15
PROVIDERS: ADMIT Psychiatry & Neurology Psychiatry; ATTEND Psychiatry & Neurology Psychiatry
DX: F25.9 Schizoaffective disorder, unspecified (principal); E11.9 Type 2 diabetes mellitus without complications; F43.10 Post-traumatic stress disorder, unspecified; F41.9 Anxiety disorder, unspecified; Z20.822 Contact with and (suspected) exposure to COVID-19; K59.00 Constipation, unspecified; I10 Essential (primary) hypertension; G47.00 Insomnia, unspecified; F15.10 Other stimulant abuse, uncomplicated; F32.A Depression, unspecified; Z90.49 Acquired absence of other specified parts of digestive tract
CPT/HCPCS: 80048; 82962; 83036; 84703; 85025; 99285; G0480; J1200; J1630; J2060